=== PATIENT | male | born 1950 | race Caucasian/White ===

== ENCOUNTER 2020-07-21 08:00 | Outpatient (CLI) | payer MEDICARE, OTHER | END 2020-07-21 23:59 | disposition home or self-care (01) | LOC: LAB.WCP 08:00 | PROVIDERS: ATTEND Dentist General Practice | DX: Z01.89 Encounter for other specified special examinations (principal) | CPT/HCPCS: 36415 ==

== ENCOUNTER 2023-09-09 08:00 | Outpatient (CLI) | payer MEDICARE, OTHER ==
--- NOTE | 2023-09-09 15:42 | XRAY Report ---
PROCEDURE: Knee 4 View BILAT INDICATIONS: BILAT KNEE PAIN TECHNIQUE: 4 views each of the right and left knees. COMPARISON: None. FINDINGS: Bones: No acute fractures or dislocations. No suspicious bony lesions. Mild disc space narrowing seen at the medial lateral femorotibial compartments bilaterally. Tiny marginal osteophytes are seen in the anterior compartments. Soft tissues: No knee joint effusion. No suspicious soft tissue calcifications or masses. IMPRESSION: Mild medial femorotibial compartment osteoporosis bilaterally. Reviewed by: Rip Gunn MD on 09/09/2023 3:41 PM PST Approved by: Rip Gunn MD on 09/09/2023 3:41 PM PST Station ID: [id number]
== END 2023-09-09 23:59 | disposition home or self-care (01) ==
LOC: DI.WOS 08:00
PROVIDERS: ATTEND Physician Assistant Surgical
DX: M17.0 Bilateral primary osteoarthritis of knee (principal)